=== PATIENT | male | born 1945 | race Caucasian/White ===

== ENCOUNTER 2021-02-13 16:44 | Emergency (ER) | payer MEDICARE, SELFPAY ==
--- NOTE | ~2021-02-13 | XR_ITS ---
EXAMINATION: XR lumbar spine 2-3V DATE: 02/13/2021 17:16 INDICATION: Right-sided low back pain. TECHNIQUE: 3 views of lumbar spine on 4 radiographs were obtained. COMPARISON: None. FINDINGS: There is 3 mm anterolisthesis of L4 on L5. Vertebral body heights are normal. There is mild ly decreased disc height at L1-L2 and L4-L5. There are endplate osteophytes at all levels. There is s evere facet joint osteoarthritis in lower lumbar spine. There are bridging endplate osteophytes from T9 to L1, consistent with diffuse idiopathic skeletal hyperostosis (DISH). IMPRESSION: 1. Mild lumbar spondylosis. 2. DISH. Reviewed, dictated and finalized at location A.
[2021-02-13 16:53] VITALS: BP 168/89; PULSE 84; RESP 16; TEMP 36.6; O2SAT 98
--- NOTE | 2021-02-13 16:58 | ED.BACK ---
HPI - Back Pain/Injury General Chief Complaint: Back Pain/Injury Stated Complaint: Back pain Time Seen by Provider: 02/13/21 16:58 Source: patient, RN notes reviewed and old records reviewed Mode of arrival: ambulatory Limitations: no limitations History of Present Illness HPI Narrative: 75-year-old male who presents to [facility] care with 1 month duration of lower right back pain which has increased in intensity the past 24 hours after working around the house. Patient denies any radiation of pain to his lower extremities, denies any feelings of tingling or numbness to his lower extremities either. Patient states no changes in his bowel or bladder function or any symptoms of saddle paraesthesia. Patient has no paraspinal muscle tenderness on examination. Patient describes pain as sharp rates pain 9/10 and is aggravated by changing positions and weight bearing or standing. MD elicited complaint: back pain Onset (ago): day(s) (1 day acutely mildly for one month) Timing: constant Severity: severe Pain scale (0-10): 9 Quality: sharp Location: right lower back Radiation: none Exacerbating factors: movement, sitting upright and other (standing) Relieving factors: none Context: other (working around house) Associated symptoms: denies other symptoms Treatments prior to arrival: NSAIDS Related Data Home Medications Medication Instructions Recorded Confirmed aspirin 81 mg PO DAILY 07/20/19 02/13/21 rituximab 10 mg IV 02/13/21 Allergies Allergy/AdvReac Type Severity Reaction Status Date / Time No Known Allergies Allergy Verified 02/13/21 16:53 Review of Systems Review of Systems: Narrative: CONSTITUTIONAL: Denies fever, chills, or sweats. EYES: Denies visual changes, redness, or discharge. ENT: Denies rhinorrhea, congestion, sore throat, or otalgia. CARDIOVASCULAR: Denies chest pain, palpitations, or edema. RESPIRATORY: Denies cough or dyspnea. GASTROINTESTINAL: Denies abdominal pain, nausea, vomiting, or diarrhea. GENITOURINARY: Denies dysuria or hematuria. SKIN: Denies rash or itching. MUSCULOSKELETAL: positive for right lower back pain, no other acute joint pain, or myalgia. NEUROLOGIC: Denies headache, numbness, or weakness. PSYCHIATRIC: Denies anxiety or depression. 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 Shingles Vision abnormalities Surgical History Surgical History H/O colonoscopy Hx of tonsillectomy Family History Family History Sibling Diabetes mellitus Mother Asthma Father Malignant neoplasm of prostate Patient's father is , Onset Age: 59 Unknown Hypertension Social History Social History (Updated 02/15/21 @ 10:33 by Zuly Clayton NP) Smoking status: Former smoker Smoking end date: 09/13/1968 Alcohol intake: current Drinks per week: 14 Substance use: never Living arrangements: with family Gender identity (if verbalized by the patient): Male Comments At time of signature, agree with nursing past medical, surgical, social and family history. There is no relevant family history pertinent to the presenting complaint Exam Narrative: Exam Narrative: GENERAL: Well-appearing, well-nourished, and in no acute distress. HEAD: Normocephalic, atraumatic. EYES: PERRLA and EOMI.. ENT: Nares clear, no rhinorrhea or epistaxis. Mucous membranes moist. NECK: Supple.no lymphadenopathy CHEST: Clear to auscultation. No respiratory distress.SAO2 98 % on room air HEART: Regular rate and rhythm. No murmur heard. Normal peripheral pulses. ABDOMEN: Soft, nontender, nondistended, nor
== END 2021-02-13 17:53 | disposition home or self-care (01) ==
PROVIDERS: Emergency Provider Registered Nurse
DX: M54.5 Low back pain (principal); M47.816 Spondylosis without myelopathy or radiculopathy, lumbar region; Z87.891 Personal history of nicotine dependence; M19.90 Unspecified osteoarthritis, unspecified site; E78.00 Pure hypercholesterolemia, unspecified; E78.5 Hyperlipidemia, unspecified; I10 Essential (primary) hypertension; G62.9 Polyneuropathy, unspecified; Z79.82 Long term (current) use of aspirin
CPT/HCPCS: 72100; 99213; G0463

== ENCOUNTER 2021-07-04 16:38 | Emergency (ER) | payer MEDICARE, SELFPAY ==
[2021-07-04 17:16] VITALS: BP 153/77; PULSE 61; RESP 16; TEMP 36.3; O2SAT 99
[2021-07-04 17:57] LABS: Basophils Percent Auto 0.2 % (0.2-1.2); Eosinophils Absolute Auto 0.1 K/mm3 (0-0.3); Eosinophils Percent Auto 0.4 % (0-4.4); Hematocrit 44.6 % (42.0-52.0); Hemoglobin 15.1 g/dL (14.0-18.0); Immature Granulocyte Absolute 0.06 K/mm3 (0.00-0.031); Immature Granulocyte Percent A 0.4 % (0-0.5); Lymphocytes Absolute Auto 1.35 K/mm3 (0.9-3.2); Lymphocytes Percent Auto 9.5 % (18.3-44.2); Mean Corpuscular HGB Conc 33.9 g/dl (32-36); Mean Corpuscular Hemoglobin 33.2 pg (26-34); Mean Platelet Volume 12.5 fl (7.4-10.4); Monocytes Percent Auto 6.8 % (2.6-8.5); Neutrophils Absolute Auto 11.7 K/mm3 (1.3-6.7); Neutrophils Percent Auto 82.7 % (45.5-73.1); Platelet Count Result 197 k/mm3 (150-375); Red Blood Count 4.55 M/mm3 (4.6-6.20); White Blood Count 14.2 K/mm3 (4.5-10.0)
[2021-07-04 18:09] LABS: Alanine Aminotransferase 76 U/L (4-50); Albumin Level 4.7 g/dL (3.5-5.1); Alkaline Phosphatase 59 U/L (38-126); Anion Gap 11 mmol/L (8-16); Aspartate Amino Transferase 48 U/L (17-59); Bilirubin,Total 0.6 mg/dL (0.2-1.3); Blood Urea Nitrogen 15 mg/dL (9-20); Calcium 9.8 mg/dL (8.4-10.2); Carbon Dioxide 24 mmol/L (22-30); Chloride 103 mmol/L (98-107); Estimated CRCL calculation 71 ml/min; Estimated Glomerular Filt Rate > 60; Glucose 126 mg/dL (65-110); Lipase 58 U/L (23-300); Potassium 4.3 mmol/L (3.4-5.0); Sodium 138 mmol/L (137-145)
[2021-07-04 19:49] VITALS: BP 180/92; PULSE 100; RESP 16; O2SAT 98
--- NOTE | 2021-07-04 20:11 | ED.MALEGU ---
HPI - Male Genitourinary General Chief complaint: Abdominal Pain Stated complaint: abd pain Time Seen by Provider: 07/04/21 19:48 Source: patient Mode of arrival: ambulatory Limitations: no limitations History of Present Illness HPI Narrative: Patient is a 75-year-old male complaining of unable to urinate and pressure in his bladder area x1 day. Patient denies any abdominal pain, nausea, vomiting or constipation. Patient did say that he had diarrhea earlier which is now resolved. Patient denies any similar episodes in the past. Related Data Home Medications Medication Instructions Recorded Confirmed aspirin 81 mg PO DAILY 07/20/19 02/13/21 rituximab 10 mg IV 02/13/21 Allergies Allergy/AdvReac Type Severity Reaction Status Date / Time No Known Allergies Allergy Verified 02/13/21 16:53 Review of Systems Review of Systems: All systems reviewed & are unremarkable except as noted in HPI and below Constitutional: Constitutional: Denies body ache(s), Denies chills, Denies excessive sweating, Denies fatigue, Denies fever(s), Denies headache(s), Denies lethargy, Denies malaise, Denies weakness and Denies weight loss Eyes: Eyes: Denies blurry vision, Denies change in vision and Denies loss of vision ENT: Denies dizziness, Denies ear discharge, Denies headache(s), Denies lip swelling, Denies epistaxis, Denies nasal congestion, Denies neck pain, Denies throat swelling and Denies tongue swelling Cardiovascular: Cardiovascular: Denies chest pain, Denies chest pain at rest, Denies chest pain with activity, Denies diaphoresis, Denies rapid heart rate, Denies edema, Denies irregular heart rhythm, Denies lightheadedness, Denies palpitations, Denies dyspnea and Denies dyspnea on exertion Respiratory: Respiratory: Denies chest congestion, Denies cough, Denies hemoptysis, Denies dyspnea and Denies dyspnea on exertion Gastrointestinal: Gastrointestinal: Denies abdominal pain, Denies melena, Denies hematochezia, Denies diarrhea, Denies nausea, Denies vomiting and Denies hematemesis Musculoskeletal: Musculoskeletal: Denies abnormal gait, Denies deformity, Denies joint swelling, Denies limited range of motion, Denies neck pain and Denies numbness Neurologic: Denies Abnormal speech present, Denies abnormal gait, Denies confusion, Denies dizziness, Denies headache(s), Denies focal weakness, Denies loss of vision, Denies numbness, Denies Other visual disturbances, Denies Sensory deficit (Neuro) and Denies weakness Psychiatric: Psychiatric: Denies confusion, Denies depression, Denies auditory hallucinations, Denies homicidal ideation and Denies suicidal ideation Endocrine: Endocrine: Denies cold intolerance, Denies excessive sweating, Denies fatigue, Denies heat intolerance and Denies palpitations Hematologic/Lymphatic: Hematologic/Lymphatic: Denies easy bleeding and Denies easy bruising Allergic/Immunologic: Allergic/Immunologic: Denies lip swelling, Denies throat swelling and Denies tongue swelling PMFSH Past Medical History Medical History Arthritis Hearing loss High cholesterol Hyperlipidemia Hypertension 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
[2021-07-04 20:14] VITALS: BP 180/90; PULSE 72; RESP 16; O2SAT 99
[2021-07-04 20:52] VITALS: BP 157/87; PULSE 73; RESP 16; O2SAT 97
[2021-07-04 21:02] LABS: Add Urine Microscopic? NO; Appearance Urine Clear (Clear); Bilirubin Urine Negative (Negative); Blood Urine Negative (Negative); Color Urine Yellow (Yellow); Glucose Urine UA Negative (Negative); Ketones Urine Negative (Negative); Leukocyte Esterase Ur Negative LEU/UL (Negative); Nitrate Urine Negative (Negative); Protein Urine Negative (Negative); Specific Grav Ur 1.014 (1.001-1.035); Urobilinogen Urine Negative mg/dL (<2.0)
== END 2021-07-04 22:20 | disposition home or self-care (01) ==
PROVIDERS: Emergency Provider Emergency Medicine
DX: R33.9 Retention of urine, unspecified (principal); E78.5 Hyperlipidemia, unspecified; I10 Essential (primary) hypertension; G61.9 Inflammatory polyneuropathy, unspecified; C88.0 Waldenstrom macroglobulinemia; M19.90 Unspecified osteoarthritis, unspecified site; Z87.891 Personal history of nicotine dependence
CPT/HCPCS: 36415; 80053; 81003; 83690; 85025; 99283